=== PATIENT | male | born 2000 | race Caucasian/White ===

== ENCOUNTER 2018-01-23 11:34 | Emergency (ER) | payer OTHER ==
[2018-01-23] MEDS ORDERED: ALBUTEROL 3 ML DEYVIAL IH ONE (11:55)
--- NOTE | 2018-01-23 11:55 | EDPHY ---
H & P Stated Complaint: Has pain chest when he swallows;smoked a "lot of weed" last pm Time Seen by Provider: 01/23/18 11:52 HPI/ROS: HPI: This is a 17-year-old male who presents with Chief Complaint: Has pain chest when he swallows;smoked a "lot of weed" last pm Location: Chest Quality: Pain Duration: Since this morning Signs and Symptoms: no shortness of breath at rest, no shortness of breath on exertion, + nonproductive cough, no chest pain, no palpitations, no lower extremity edema, no wheezing, no orthopnea, no paroxysmal nocturnal dyspnea, no fever, no injury/trauma, no hemoptysis, no carpal pedal spasms Timing: Acute, intermittent episodes, worse when he swallows Severity: Lyup-ot-[id number] Context: Patient is a student at [employer], presents with complaints of pain in his anterior chest when he swallows and takes a deep breath since this morning. He reports that he was smoking marijuana last night out of a Bong. History of asthma but does not have an albuterol inhaler. Denies any shortness of breath, wheezing, fever. He does have a nonproductive cough and a tickle in his throat. Modifying Factors: None Comment: ROS: A comprehensive 10 system review of systems is otherwise negative aside from elements mentioned in the history of present illness. MEDICAL/SURGICAL/SOCIAL HISTORY: Medical history: Depression Surgical history: Denies Social history: Denies tobacco use. CONSTITUTIONAL: Slightly anxious, young adult white male, thin, awake and alert , no obvious distress HEENT: Atraumatic and normocephalic, PERRL, EOMI. Nares patent; no rhinorrhea; no nasal mucosal edema. Tympanic membranes clear. Oropharynx clear, no exudate and moist pink mucosa. Airway patent. No lymphadenopathy. No meningismus. Cardiovascular: Normal S1/S2, regular rate, regular rhythm, without murmur rub or gallop. PULMONARY/CHEST: Symmetrical and nontender. Clear to auscultation bilaterally. Good air movement. No accessory muscle usage. ABDOMEN: Soft, nondistended, nontender, no rebound, no guarding, no peritoneal signs, no masses or organomegaly. No CVAT. EXTREMITIES: 2/2 pulses, strength 5/5, no deformities, no clubbing, no cyanosis or edema. NEUROLOGICAL: no focal neuro deficits. GCS 15. SKIN: Warm and dry, no erythema. no rash. Good capillary refill. Source: Patient Exam Limitations: No limitations - Personal History Current Tetanus Diphtheria and Acellular Pertussis (TDAP): Yes - Medical/Surgical History Other PMH: depression - Social History Smoking Status: Never smoked Constitutional: Initial Vital Signs Temperature (C) 36.8 C 01/23/18 11:35 Heart Rate 84 01/23/18 11:35 Respiratory Rate 16 01/23/18 11:35 Blood Pressure 110/61 01/23/18 11:35 O2 Sat (%) 97 01/23/18 11:35 O2 Delivery Mode Room Air Allergies/Adverse Reactions: No Known Allergies Allergy (Unverified 01/23/18 11:38) Home Medications: Medication Instructions Recorded Albuterol Sulfate [Proair Hfa] 1 - 2 puffs IH Q4 PRN #1 hfa.aer.ad 01/23/18 Escitalopram Oxalate [Lexapro] 10 mg PO 01/23/18 Medical Decision Making - Diagnostics EKG Interpretation: 12 lead EKG: Indication: Chest pain Rhythm: Normal sinus rhythm, rate of 72 beats per minute [place]: Normal Intervals: Normal QRS: Normal ST segments: Normal INTERPRETATION: Early repolarization The 12 lead EKG was interpreted by myself and with attending. Imaging Results: Imaging Impressions Chest X-Ray 01/23/18 11:52 Impression: No acute pulmonary disease. ED Course/Re-evaluation: Vital signs reviewed and stable upon arrival. No hypoxia, respiratory distress Will obtain chest x-ray to evaluate for pneumothorax, EKG for arrhythmias Given albuterol inhaler. Wells criteria is low for pulmonary embolism. EKG shows normal sinus rhythm, early repolarization, no acute ischemic changes, no arrhythmias, no heart blocks. Chest x-ray my read shows no opacity, no effusion, no pneumothorax. Given a prescription for albuterol inhaler This patient was seen under the supervision of my secondary supervising physician. I evaluated care for this patient independently. Discussed this patient with Dr. Craft. Differential Diagnosis: Shortness of breath including but not limited to pulmonary infectious process, COPD, asthma, pulmonary embolus and congestive heart failure. - Data Points Medications Given: Discontinued Medications Albuterol (Proventil Neb) 3 ml IH EDNOW ONE Stop: 01/23/18 11:56 Last Admin: 01/23/18 12:02 Dose: 3 ml Departure - Departure Disposition: Home, Routine, Self-Care Clinical Impression: Marijuana use, Pneumonitis due to inhalation of other solids and liquids Condition: Good Instructions: Asthma (ED), Cannabis Abuse (ED) Additional Instructions: Please refrain from smoking cigarettes, marijuana. Do not perform Bong hits. Use albuterol inhaler every 4 hr as needed for shortness of breath, wheezing. Referrals: [facility],. [Clinic] - As per Instructions Prescriptions: Albuterol Sulfate [Proair Hfa] 1 - 2 puffs IH Q4 PRN #1 hfa.aer.ad PRN Reason: Short Of Breath/Dyspnea
[2018-01-23 13:12] VITALS: BP 99/57
--- NOTE | 2018-01-27 12:47 | CPEKG ---
Test Reason : OPEN Blood Pressure : / mmHG Vent. Rate : 072 BPM Atrial Rate : 070 BPM P-R Int : 123 ms QRS Dur : 101 ms QT Int : 384 ms P-R-T Axes : 006 085 064 degrees QTc Int : [address] elev, probable normal early repol pattern Confirmed by Tali Luis ([id number]) on 01/27/2018 12:47:15 PM Referred By: Confirmed By:Tali Luis
== END 2018-01-23 13:12 | disposition home or self-care (01) ==
DX: J69.0 Pneumonitis due to inhalation of food and vomit (principal); F12.90 Cannabis use, unspecified, uncomplicated
CPT/HCPCS: J7613